=== PATIENT | male | born 1950 | race Caucasian/White ===

== ENCOUNTER 2017-04-06 10:25 | Inpatient (IN) | payer MEDICARE ==
[2017-04-06] VITALS (9 sets, daily range): BP systolic 120–162; BP diastolic 74–87
[~2017-04-06] VITALS: Ht 195.6 cm; Wt 144.2 kg
[~2017-04-06 10:25] MED LIST: ACET325T14 PO; ACET325T14 PR; CHOL4PAC2 PO; DEXT50DI3 IV; DIPH1TAB PO; DIPH1TAB6 PO; Enoxaparin Sodium SQ; FENT1PAT75 TD; FURO80TA3 PO; GABA-827 PO; GLIP10TA13 PO; GLUC1VIA IM; HYDR20VI3 IVPush; INSU100C5 SQ-INSULIN; INSU100I18 SQ-INSULIN; INSU100V4 SQ; INSU100V5 SQ-INSULIN; IPRA3AMP NEB; LABE5VIA13 IV; LISI-170 PO; LOVA40TA2 PO; MERO1VIA15 IV; METF500T4 PO; ONDA2VIA3 IVPush; OXYC5TAB3 PO; PANT40VI IV; POTA20LI NG; QUET25TA PO; WARF5TAB7 PO; [UNRECOGNIZED DRUG - CODE] IV; [UNRECOGNIZED DRUG - CODE] IVPB
[2017-04-06] MEDS ORDERED: SODIUM CHLORIDE 0.9% 1,000 ML IV ONE (10:51)
[2017-04-06] MEDS ORDERED: ONDANSETRON 2MG/ML, 2ML IVPush ONE (11:00)
[2017-04-06] MEDS ORDERED: SODIUM CHLORIDE 0.9% 1,000ML IVBOLUS ONE (11:00)
[2017-04-06] MEDS ORDERED: SODIUM CHLORIDE FLUSH 10ML SYR IVF ONE (11:00)
[2017-04-06] MEDS ORDERED: MORPHINE SULFATE 4 MG/ML, 1ML IVPush PRN (11:00)
[2017-04-06] MEDS ORDERED: MORPHINE SULFATE 4 MG/ML, 1ML ONE (11:27)
[2017-04-06] MEDS ORDERED: ONDANSETRON 2MG/ML, 2ML ONE (11:27)
[2017-04-06 11:36] LABS: MEAN CORPUSCULAR HEMOGLOBIN 28.6 pg (27.5-34.5); MEAN CORPUSCULAR HGB CONC 32.8 g/dL (33.2-36.2); MEAN CORPUSCULAR VOLUME 87.2 fL (81-97); MEAN PLATELET VOLUME 8.9 fL (7.4-10.4); PLATELET COUNT 375 x10^3/uL (130-400); RED BLOOD COUNT 4.77 x10^6/uL (4.38-5.82); RED CELL DISTRIBUTION WIDTH 14.8 % (9.4-14.8)
[2017-04-06 11:43] LABS: ANION GAP 10 mmol/L (5-15); CALCIUM 8.3 mg/dL (8.5-10.1); CHLORIDE 100 mmol/L (98-107)
[2017-04-06 11:45] LABS: ALANINE AMINOTRANSFERASE 32 U/L (12-78); CREATININE 1.18 mg/dL (0.7-1.3)
[2017-04-06 11:47] LABS: ALKALINE PHOSPHATASE 107 U/L (45-117); BILIRUBIN,TOTAL 0.9 mg/dL (0.2-1.0); TOTAL PROTEIN 7.5 g/dL (6.4-8.2)
[2017-04-06] MEDS ORDERED: GABA-827 PO (11:49)
[2017-04-06] MEDS ORDERED: OMEG-157 PO (11:49)
[2017-04-06] MEDS ORDERED: POTA99TA8 PO (11:49)
[2017-04-06] MEDS ORDERED: CARV-39 PO (11:49)
[2017-04-06] MEDS ORDERED: AMLO10TA2 PO (11:49)
[2017-04-06] MEDS ORDERED: ZINC50TA3 PO (11:49)
[2017-04-06] MEDS ORDERED: ASCO500T8 PO (11:49)
[2017-04-06] MEDS ORDERED: METF500T27 PO (11:49)
[2017-04-06] MEDS ORDERED: LISI40TA PO (11:49)
[2017-04-06] MEDS ORDERED: LOVA40TA2 PO (11:49)
[2017-04-06 12:10] LABS: MD YES
[2017-04-06 12:12] LABS: BAND#(MANUAL) 0.46 x10^3/uL; BANDS%(MANUAL) 2 % (0-7); LYMPH#(MANUAL) 0.92 x10^3/uL (1-3.4); LYMPHS% (MANUAL) 4 % (22-44); MONOS#(MANUAL) 0.92 x10^3/uL (0.3-2.7); MONOS% (MANUAL) 4 % (2-9); SEGS% (MANUAL) 90 % (42-75)
[2017-04-06 12:13] LABS: <PLATELET ESTIMATE> ADEQUATE
[2017-04-06 12:14] LABS: <RBC MORPHOLOGY> NORMAL; LARGE PLATELETS 1+
[2017-04-06] MEDS ORDERED: OMNIPAQUE 350 MG/ML, 100ML BOTTLE ONE (12:31)
[2017-04-06 13:16] LABS: MICROSCOPIC INDICATED
[2017-04-06 13:20] LABS: CULTURE INDICATED? NO
[2017-04-06 13:27] LABS: INTERNATIONAL NORMALIZED RATIO 6.12 (0.93-1.1); PROTHROMBIN TIME 60.8 Seconds (9.6-11.5)
[2017-04-06] MEDS ORDERED: CLINDAMYCIN PMX 600MG/50ML 50 ML IV ONE (14:00)
[2017-04-06] MEDS ORDERED: CLINDAMYCIN PMX 600MG/50ML 50 ML ONE (14:27)
[2017-04-06] MEDS ORDERED: SODIUM CHLORIDE 0.9% 1,000 ML IV SCH (18:49)
[2017-04-06] MEDS ORDERED: GLUCAGON 1 MG IM PRN (19:00)
[2017-04-06] MEDS ORDERED: DEXTROSE 50%, 50ML SYRINGE IVPush PRN (19:00)
[2017-04-06] MEDS ORDERED: DEXTROSE 4 GM TAB.CHEW PO PRN (19:00)
[2017-04-06] MEDS ORDERED: PHYTONADIONE 5 MG TABLET PO ONE (19:00)
[2017-04-06] MEDS ORDERED: hydrALAzine 20 MG/ML, 1ML IVPush PRN (19:00)
[2017-04-06] MEDS: AMPICILLIN/SULBACTAM 1,500 MG in SODIUM CHLORIDE 0.9% 50 ML IV SCH (19:53)
[2017-04-06] MEDS: AMLODIPINE 5 MG TABLET PO SCH (19:54)
[2017-04-06] MEDS: metFORMIN XR 500 MG TAB.ER.24H PO SCH (19:55)
[2017-04-06] MEDS: GABAPENTIN 400 MG CAPSULE PO SCH (19:55)
[2017-04-06] MEDS: LOVASTATIN 40 MG TABLET PO SCH (19:55)
[2017-04-06] MEDS: CARVEDILOL 25 MG TABLET PO SCH (19:55)
[2017-04-06] MEDS: SODIUM CHLORIDE FLUSH 10ML SYR IVF SCH (19:56)
[2017-04-06] MEDS: ONDANSETRON 2MG/ML, 2ML IVPush PRN (20:30)
[2017-04-06] MEDS: INSULIN LISPRO 100 UNITS/ML, PEN SQ-INSULIN SCH (21:14)
[2017-04-07 00:11] VITALS: BP 131/79
[2017-04-07] MEDS: AMPICILLIN/SULBACTAM 1,500 MG in SODIUM CHLORIDE 0.9% 50 ML IV SCH ×4 (00:14→19:33)
[2017-04-07 01:40] VITALS: BP 115/73
[2017-04-07 04:53] LABS: MEAN CORPUSCULAR HEMOGLOBIN 28.9 pg (27.5-34.5); MEAN CORPUSCULAR HGB CONC 32.8 g/dL (33.2-36.2); PLATELET COUNT 341 x10^3/uL (130-400); RED BLOOD COUNT 3.72 x10^6/uL (4.38-5.82); RED CELL DISTRIBUTION WIDTH 14.9 % (9.4-14.8)
[2017-04-07 04:58] LABS: INTERNATIONAL NORMALIZED RATIO 2.99 (0.93-1.1); PROTHROMBIN TIME 30.1 Seconds (9.6-11.5)
[2017-04-07 05:01] LABS: CALCIUM 7.7 mg/dL (8.5-10.1); CHLORIDE 105 mmol/L (98-107)
[2017-04-07 05:07] LABS: ALANINE AMINOTRANSFERASE 29 U/L (12-78); ALBUMIN 1.7 g/dL (3.4-5.0); ALKALINE PHOSPHATASE 83 U/L (45-117); ANION GAP 8 mmol/L (5-15); BILIRUBIN,TOTAL 0.8 mg/dL (0.2-1.0); CREATININE 1.06 mg/dL (0.7-1.3); TOTAL PROTEIN 6.4 g/dL (6.4-8.2)
[2017-04-07 05:56] LABS: BASOPHILS # (AUTO) 0.13 x10^3/uL (0-0.1); BASOPHILS % (AUTO) 1 % (0-1); EOSINOPHILS % (AUTO) 0 % (1-7); LYMPHOCYTES # (AUTO) 0.78 x10^3/uL (1-3.4); LYMPHOCYTES % (AUTO) 4 % (22-44); MD SCAN; MONOCYTES # (AUTO) 0.88 x10^3/uL (0.2-0.8); MONOCYTES % (AUTO) 5 % (2-9); NEUTROPHILS % (AUTO) 90 % (42-75)
[2017-04-07] MEDS: GABAPENTIN 400 MG CAPSULE PO SCH ×3 (07:51→21:32)
[2017-04-07] MEDS: LISINOPRIL 20 MG TABLET PO SCH (07:51)
[2017-04-07] MEDS: OMEGA-3/FISH OIL CAPSULE PO SCH (07:51)
[2017-04-07] MEDS: CARVEDILOL 25 MG TABLET PO SCH ×2 (07:51→21:31)
[2017-04-07] MEDS: ASCORBIC ACID 500 MG TABLET PO SCH (07:51)
[2017-04-07] MEDS: ONDANSETRON 2MG/ML, 2ML IVPush PRN (07:52)
[2017-04-07] MEDS: INSULIN LISPRO 100 UNITS/ML, PEN SQ-INSULIN SCH ×4 (07:52→21:39)
[2017-04-07 07:53] VITALS: BP 124/75
[2017-04-07] MEDS ORDERED: INSULIN GLARGINE 100 UNITS/ML, PEN SQ-INSULIN SCH (08:00)
[2017-04-07] MEDS: SODIUM CHLORIDE FLUSH 10ML SYR IVF SCH ×2 (08:01→19:33)
[2017-04-07] MEDS ORDERED: ZINC GLUCONATE 50 MG PO SCH (09:00)
[2017-04-07 14:00] VITALS: BP 100/63
[2017-04-07 20:26] VITALS: BP 119/66
[2017-04-07] MEDS: metFORMIN XR 500 MG TAB.ER.24H PO SCH (21:32)
[2017-04-07] MEDS: AMLODIPINE 5 MG TABLET PO SCH (21:32)
[2017-04-07] MEDS: LOVASTATIN 40 MG TABLET PO SCH (21:32)
[2017-04-08] MEDS: AMPICILLIN/SULBACTAM 1,500 MG in SODIUM CHLORIDE 0.9% 50 ML IV SCH ×4 (01:04→18:36)
[2017-04-08 03:05] VITALS: BP 94/59
[2017-04-08 03:21] LABS: BASOPHILS # (AUTO) 0.02 x10^3/uL (0-0.1); BASOPHILS % (AUTO) 0 % (0-1); EOSINOPHILS % (AUTO) 0 % (1-7); LYMPHOCYTES # (AUTO) 0.89 x10^3/uL (1-3.4); LYMPHOCYTES % (AUTO) 5 % (22-44); MD NO; MEAN CORPUSCULAR HEMOGLOBIN 29.2 pg (27.5-34.5); MEAN CORPUSCULAR HGB CONC 33.3 g/dL (33.2-36.2); MEAN CORPUSCULAR VOLUME 87.6 fL (81-97); MEAN PLATELET VOLUME 8.9 fL (7.4-10.4); MONOCYTES # (AUTO) 0.96 x10^3/uL (0.2-0.8); MONOCYTES % (AUTO) 6 % (2-9); NEUTROPHILS # (AUTO) 15.19 x10^3/uL (1.8-6.8); NEUTROPHILS % (AUTO) 89 % (42-75); PLATELET COUNT 371 x10^3/uL (130-400); RED CELL DISTRIBUTION WIDTH 15.6 % (9.4-14.8)
[2017-04-08 03:25] LABS: INTERNATIONAL NORMALIZED RATIO 1.52 (0.93-1.1); PROTHROMBIN TIME 15.5 Seconds (9.6-11.5)
[2017-04-08 03:33] LABS: ANION GAP 8 mmol/L (5-15); CALCIUM 7.8 mg/dL (8.5-10.1); CHLORIDE 105 mmol/L (98-107)
[2017-04-08 03:37] LABS: CREATININE 1.51 mg/dL (0.7-1.3)
[2017-04-08 07:01] VITALS: BP 104/68
[2017-04-08] MEDS: CARVEDILOL 25 MG TABLET PO SCH ×2 (07:35→21:49)
[2017-04-08] MEDS: ASCORBIC ACID 500 MG TABLET PO SCH (07:35)
[2017-04-08] MEDS: SODIUM CHLORIDE FLUSH 10ML SYR IVF SCH ×2 (07:36→21:49)
[2017-04-08] MEDS: GABAPENTIN 400 MG CAPSULE PO SCH ×3 (07:36→21:51)
[2017-04-08] MEDS: LISINOPRIL 20 MG TABLET PO SCH (07:36)
[2017-04-08] MEDS: OMEGA-3/FISH OIL CAPSULE PO SCH (07:36)
[2017-04-08] MEDS: INSULIN LISPRO 100 UNITS/ML, PEN SQ-INSULIN SCH ×4 (07:38→21:58)
[2017-04-08] MEDS: ACETAMINOPHEN 325 MG TABLET PO PRN (07:51)
[2017-04-08 13:27] VITALS: BP 113/66
[2017-04-08 19:15] VITALS: BP 123/70
[2017-04-08] MEDS: AMLODIPINE 5 MG TABLET PO SCH (21:49)
[2017-04-08] MEDS: metFORMIN XR 500 MG TAB.ER.24H PO SCH (21:49)
[2017-04-08] MEDS: LOVASTATIN 40 MG TABLET PO SCH (21:49)
[2017-04-09] MEDS: AMPICILLIN/SULBACTAM 1,500 MG in SODIUM CHLORIDE 0.9% 50 ML IV SCH ×4 (01:08→18:14)
[2017-04-09 01:11] VITALS: BP 118/73
[2017-04-09 03:12] LABS: MEAN CORPUSCULAR HEMOGLOBIN 28.8 pg (27.5-34.5); MEAN CORPUSCULAR HGB CONC 32.9 g/dL (33.2-36.2); MEAN CORPUSCULAR VOLUME 87.5 fL (81-97); MEAN PLATELET VOLUME 8.9 fL (7.4-10.4); PLATELET COUNT 403 x10^3/uL (130-400); RED CELL DISTRIBUTION WIDTH 15.3 % (9.4-14.8)
[2017-04-09 03:24] LABS: ANION GAP 8 mmol/L (5-15); CALCIUM 7.7 mg/dL (8.5-10.1); CHLORIDE 106 mmol/L (98-107)
[2017-04-09 03:45] LABS: BASOPHILS # (AUTO) 0.05 x10^3/uL (0-0.1); BASOPHILS % (AUTO) 0 % (0-1); EOSINOPHILS % (AUTO) 0 % (1-7); LYMPHOCYTES # (AUTO) 0.96 x10^3/uL (1-3.4); LYMPHOCYTES % (AUTO) 6 % (22-44); MD SCAN; MONOCYTES # (AUTO) 0.97 x10^3/uL (0.2-0.8); MONOCYTES % (AUTO) 6 % (2-9); NEUTROPHILS # (AUTO) 13.58 x10^3/uL (1.8-6.8); NEUTROPHILS % (AUTO) 87 % (42-75)
[2017-04-09 06:47] VITALS: BP 111/68
[2017-04-09] MEDS: LISINOPRIL 20 MG TABLET PO SCH (07:33)
[2017-04-09] MEDS: ASCORBIC ACID 500 MG TABLET PO SCH (07:33)
[2017-04-09] MEDS: GABAPENTIN 400 MG CAPSULE PO SCH ×3 (07:33→19:57)
[2017-04-09] MEDS: OMEGA-3/FISH OIL CAPSULE PO SCH (07:33)
[2017-04-09] MEDS: CARVEDILOL 25 MG TABLET PO SCH ×2 (07:33→19:56)
[2017-04-09] MEDS: SODIUM CHLORIDE FLUSH 10ML SYR IVF SCH ×2 (07:35→19:56)
[2017-04-09] MEDS: INSULIN LISPRO 100 UNITS/ML, PEN SQ-INSULIN SCH ×4 (07:35→20:10)
[2017-04-09 11:09] LABS: CLOSTRIDIUM DIFFICILE ANTIGEN NEGATIVE; CLOSTRIDIUM DIFFICILE TOXIN NEGATIVE (Negative)
[2017-04-09] MEDS: ACETAMINOPHEN 325 MG TABLET PO PRN ×2 (11:19→19:57)
[2017-04-09 12:35] VITALS: BP 145/83
[2017-04-09] MEDS ORDERED: GADOBUTROL 10 MMOL/10 ML PFS ONE (19:08)
[2017-04-09 19:42] VITALS: BP 144/72
[2017-04-09] MEDS: metFORMIN XR 500 MG TAB.ER.24H PO SCH (19:56)
[2017-04-09] MEDS: LOVASTATIN 40 MG TABLET PO SCH (19:56)
[2017-04-09] MEDS: AMLODIPINE 5 MG TABLET PO SCH (19:57)
[2017-04-10] MEDS: AMPICILLIN/SULBACTAM 1,500 MG in SODIUM CHLORIDE 0.9% 50 ML IV SCH (01:58)
[2017-04-10 04:36] VITALS: BP 126/73
[2017-04-10 04:56] LABS: MEAN CORPUSCULAR HGB CONC 33.3 g/dL (33.2-36.2); MEAN CORPUSCULAR VOLUME 87.2 fL (81-97); MEAN PLATELET VOLUME 8.9 fL (7.4-10.4); PLATELET COUNT 401 x10^3/uL (130-400); RED BLOOD COUNT 3.87 x10^6/uL (4.38-5.82); RED CELL DISTRIBUTION WIDTH 15.2 % (9.4-14.8)
[2017-04-10 05:02] LABS: ANION GAP 4 mmol/L (5-15); CHLORIDE 106 mmol/L (98-107); CREATININE 1.01 mg/dL (0.7-1.3)
[2017-04-10 06:01] LABS: BASOPHILS # (AUTO) 0.11 x10^3/uL (0-0.1); BASOPHILS % (AUTO) 1 % (0-1); EOSINOPHILS % (AUTO) 0 % (1-7); LYMPHOCYTES # (AUTO) 1.12 x10^3/uL (1-3.4); LYMPHOCYTES % (AUTO) 7 % (22-44); MD SCAN; MONOCYTES # (AUTO) 0.85 x10^3/uL (0.2-0.8); MONOCYTES % (AUTO) 6 % (2-9); NEUTROPHILS # (AUTO) 13.37 x10^3/uL (1.8-6.8); NEUTROPHILS % (AUTO) 87 % (42-75)
[2017-04-10 06:54] VITALS: BP 143/75
[2017-04-10] MEDS: INSULIN LISPRO 100 UNITS/ML, PEN SQ-INSULIN SCH ×4 (07:00→21:34)
[2017-04-10] MEDS ORDERED: VANCOMYCIN PER PHARMACY MC PRN (07:30)
[2017-04-10] MEDS ORDERED: PIPERACILLIN/TAZO/PMX 3.375GM 50 ML IV SCH (07:30)
[2017-04-10] MEDS: CARVEDILOL 25 MG TABLET PO SCH ×2 (08:49→21:24)
[2017-04-10] MEDS: SODIUM CHLORIDE FLUSH 10ML SYR IVF SCH ×2 (08:49→21:23)
[2017-04-10] MEDS: OMEGA-3/FISH OIL CAPSULE PO SCH (08:51)
[2017-04-10] MEDS: LISINOPRIL 20 MG TABLET PO SCH (08:52)
[2017-04-10] MEDS: ASCORBIC ACID 500 MG TABLET PO SCH (08:52)
[2017-04-10] MEDS: GABAPENTIN 400 MG CAPSULE PO SCH ×3 (08:52→21:24)
[2017-04-10] MEDS ORDERED: PHARMACOKINETIC CONSULTATION MC ONE (09:00)
[2017-04-10] MEDS ORDERED: PHARMACOKINETIC MONITORING MC PRN (09:00)
[2017-04-10] MEDS ORDERED: VANCOMYCIN 2,200 MG in SODIUM CHLORIDE 0.9% 500 ML IV SCH (09:30)
[2017-04-10] MEDS: LACTATED RINGERS 1,000 ML IV SCH ×2 (09:43→23:53)
[2017-04-10] MEDS ORDERED: SUGAMMADEX 200 MG/2 ML IVPush ONE ×2 (10:00)
[2017-04-10] MEDS ORDERED: ONDANSETRON 2MG/ML, 2ML ONE (10:09)
[2017-04-10] MEDS ORDERED: DEXAMETHASONE 4 MG/ML, 1ML ONE (10:09)
[2017-04-10] MEDS ORDERED: ROCURONIUM 10 MG/ML,10ML ONE (10:09)
[2017-04-10] MEDS ORDERED: CEFAZOLIN 1,000 MG ONE (10:09)
[2017-04-10] MEDS ORDERED: PROPOFOL 10 MG/ML, 20ML ONE (10:09)
[2017-04-10] MEDS ORDERED: FENTANYL PF 100 MCG/2ML IV PRN (11:00)
[2017-04-10] MEDS ORDERED: morphine SULFATE 10 MG/ML, 1ML IV PRN (11:00)
[2017-04-10] MEDS ORDERED: HYDROcodone/APAP 7.5-325MG/15ML UDC PO PRN (11:00)
[2017-04-10] MEDS ORDERED: OXYcodone 5 MG/5 ML ORAL.SOL UDC PO PRN (11:00)
[2017-04-10] MEDS ORDERED: HYDROmorphone 2 MG/ML, 1ML ONE (11:30)
[2017-04-10] MEDS ORDERED: OXYcodone 5 MG/5 ML ORAL.SOL UDC ONE (11:30)
[2017-04-10] MEDS: HYDROmorphone 1 MG/ML, 1ML IV PRN ×4 (11:35→12:00)
[2017-04-10] MEDS: OXYcodone/APAP 5/325MG TABLET PO PRN (12:37)
[2017-04-10 13:10] VITALS: BP 135/73
[2017-04-10] MEDS: MORPHINE SULFATE 4 MG/ML, 1ML IVPush PRN (15:02)
[2017-04-10] MEDS: MEROPENEM 1 GM in SODIUM CHLORIDE 0.9% 100 ML IV SCH ×2 (15:02→23:53)
[2017-04-10 18:39] VITALS: BP 119/69
[2017-04-10] MEDS: metFORMIN XR 500 MG TAB.ER.24H PO SCH (21:24)
[2017-04-10] MEDS: LOVASTATIN 40 MG TABLET PO SCH (21:24)
[2017-04-10] MEDS: AMLODIPINE 5 MG TABLET PO SCH (21:25)
[2017-04-10] MEDS: HEPARIN 5,000 UNITS/ML, 1ML SQ SCH (21:25)
[2017-04-11] MEDS: MORPHINE SULFATE 4 MG/ML, 1ML IVPush PRN (00:21)
[2017-04-11 00:55] VITALS: BP 110/65
[2017-04-11 03:12] LABS: MEAN CORPUSCULAR HEMOGLOBIN 28.8 pg (27.5-34.5); MEAN CORPUSCULAR HGB CONC 32.8 g/dL (33.2-36.2); MEAN CORPUSCULAR VOLUME 87.8 fL (81-97); MEAN PLATELET VOLUME 8.5 fL (7.4-10.4); PLATELET COUNT 432 x10^3/uL (130-400); RED BLOOD COUNT 3.65 x10^6/uL (4.38-5.82); RED CELL DISTRIBUTION WIDTH 15.3 % (9.4-14.8)
[2017-04-11 03:17] LABS: ALBUMIN 1.4 g/dL (3.4-5.0); ANION GAP 7 mmol/L (5-15); CALCIUM 7.7 mg/dL (8.5-10.1); CHLORIDE 105 mmol/L (98-107)
[2017-04-11 03:25] LABS: ALANINE AMINOTRANSFERASE 47 U/L (12-78); ALKALINE PHOSPHATASE 83 U/L (45-117); BILIRUBIN,TOTAL 0.6 mg/dL (0.2-1.0); CREATININE 0.99 mg/dL (0.7-1.3)
[2017-04-11 03:38] LABS: BASOPHILS # (AUTO) 0.04 x10^3/uL (0-0.1); BASOPHILS % (AUTO) 0 % (0-1); EOSINOPHILS # (AUTO) 0.01 x10^3/uL (0-0.4); EOSINOPHILS % (AUTO) 0 % (1-7); LYMPHOCYTES # (AUTO) 0.87 x10^3/uL (1-3.4); LYMPHOCYTES % (AUTO) 5 % (22-44); MD SCAN; MONOCYTES # (AUTO) 0.89 x10^3/uL (0.2-0.8); MONOCYTES % (AUTO) 5 % (2-9); NEUTROPHILS # (AUTO) 16.64 x10^3/uL (1.8-6.8); NEUTROPHILS % (AUTO) 90 % (42-75)
[2017-04-11 03:50] LABS: HEMOGLOBIN A1C 10.4 % (4.2-6.3)
[2017-04-11 04:07] LABS: SEDIMENTATION RATE 107 mm/hr (0-10)
[2017-04-11] MEDS: HEPARIN 5,000 UNITS/ML, 1ML SQ SCH ×2 (05:38→13:00)
[2017-04-11] MEDS: MEROPENEM 1 GM in SODIUM CHLORIDE 0.9% 100 ML IV SCH ×3 (05:39→22:34)
[2017-04-11 07:41] VITALS: BP 130/73
[2017-04-11] MEDS: INSULIN LISPRO 100 UNITS/ML, PEN SQ-INSULIN SCH ×4 (07:51→21:27)
[2017-04-11] MEDS: CARVEDILOL 25 MG TABLET PO SCH ×2 (09:00→21:19)
[2017-04-11] MEDS: SODIUM CHLORIDE FLUSH 10ML SYR IVF SCH ×2 (09:00→21:19)
[2017-04-11] MEDS: ASCORBIC ACID 500 MG TABLET PO SCH (09:47)
[2017-04-11] MEDS: GABAPENTIN 400 MG CAPSULE PO SCH ×3 (09:47→21:18)
[2017-04-11] MEDS: OMEGA-3/FISH OIL CAPSULE PO SCH (09:47)
[2017-04-11] MEDS: LISINOPRIL 20 MG TABLET PO SCH (09:47)
[2017-04-11] MEDS: OXYcodone/APAP 5/325MG TABLET PO PRN ×2 (11:23→21:27)
[2017-04-11 13:28] VITALS: BP 112/67
[2017-04-11] MEDS ORDERED: HYDROmorphone 1 MG/ML, 1ML IV PRN (15:30)
[2017-04-11] MEDS ORDERED: OXYcodone 5 MG/5 ML ORAL.SOL UDC PO PRN (15:30)
[2017-04-11] MEDS ORDERED: MIDAZOLAM 1 MG/ML, 2ML IV PRN (15:30)
[2017-04-11] MEDS ORDERED: ACETAMINOPHEN 325 MG TABLET PO PRN (15:30)
[2017-04-11] MEDS ORDERED: MEPERIDINE/PF 25MG/0.5ML IVPush PRN (15:30)
[2017-04-11] MEDS ORDERED: LABETALOL 5MG/ML, 20ML IV PRN (15:30)
[2017-04-11] MEDS ORDERED: hydrALAzine 20 MG/ML, 1ML IV PRN (15:30)
[2017-04-11] MEDS ORDERED: ALBUTEROL/IPRATROPIUM 2.5MG/0.5MG, 3 ML NPPB PRN (15:30)
[2017-04-11] MEDS ORDERED: ONDANSETRON 2MG/ML, 2ML IVPush PRN (15:30)
[2017-04-11] MEDS ORDERED: LIDOCAINE GEL 2%, 5ML ONE (15:32)
[2017-04-11] MEDS ORDERED: FENTANYL PF 250 MCG/5ML ONE (15:33)
[2017-04-11] MEDS ORDERED: PHENYLEPHRINE 10 MG/ML ONE (15:41)
[2017-04-11] MEDS ORDERED: EPHEDRINE 50 MG/ML, 1ML ONE (16:09)
[2017-04-11] MEDS ORDERED: ONDANSETRON 2MG/ML, 2ML ONE (16:10)
[2017-04-11] MEDS ORDERED: PROPOFOL 10 MG/ML, 20ML ONE (16:10)
[2017-04-11] MEDS ORDERED: DEXAMETHASONE 4 MG/ML, 1ML ONE (16:10)
[2017-04-11] MEDS ORDERED: CEFAZOLIN 1,000 MG ONE (16:10)
[2017-04-11] MEDS ORDERED: OXYcodone 5 MG/5 ML ORAL.SOL UDC ONE (17:17)
[2017-04-11] MEDS ORDERED: FENTANYL PF 100 MCG/2ML ONE (17:29)
[2017-04-11] MEDS: FENTANYL PF 100 MCG/2ML IV PRN ×2 (17:30→17:45)
[2017-04-11] MEDS: LOVASTATIN 40 MG TABLET PO SCH (21:19)
[2017-04-11] MEDS: AMLODIPINE 5 MG TABLET PO SCH (22:31)
[2017-04-11] MEDS: LACTATED RINGERS 1,000 ML IV SCH (22:35)
[2017-04-12 00:09] VITALS: BP 107/59
[2017-04-12] MEDS: MORPHINE SULFATE 4 MG/ML, 1ML IVPush PRN ×4 (00:19→20:46)
[2017-04-12] MEDS: OXYcodone/APAP 5/325MG TABLET PO PRN ×3 (04:50→17:38)
[2017-04-12 06:35] VITALS: BP 124/72
[2017-04-12] MEDS: MEROPENEM 1 GM in SODIUM CHLORIDE 0.9% 100 ML IV SCH ×3 (06:39→22:57)
[2017-04-12] MEDS: INSULIN LISPRO 100 UNITS/ML, PEN SQ-INSULIN SCH ×4 (07:51→20:40)
[2017-04-12] MEDS: SODIUM CHLORIDE FLUSH 10ML SYR IVF SCH ×2 (09:00→20:33)
[2017-04-12] MEDS: CARVEDILOL 25 MG TABLET PO SCH ×2 (09:11→20:36)
[2017-04-12] MEDS: OMEGA-3/FISH OIL CAPSULE PO SCH (09:12)
[2017-04-12] MEDS: ASCORBIC ACID 500 MG TABLET PO SCH (09:12)
[2017-04-12] MEDS: GABAPENTIN 400 MG CAPSULE PO SCH ×3 (09:13→20:36)
[2017-04-12] MEDS: LISINOPRIL 20 MG TABLET PO SCH (09:13)
[2017-04-12] MEDS: HEPARIN 5,000 UNITS/ML, 1ML SQ SCH ×2 (09:14→17:39)
[2017-04-12 11:19] LABS: MEAN CORPUSCULAR HEMOGLOBIN 28.4 pg (27.5-34.5); MEAN CORPUSCULAR HGB CONC 32.6 g/dL (33.2-36.2); MEAN PLATELET VOLUME 8.6 fL (7.4-10.4); PLATELET COUNT 475 x10^3/uL (130-400); RED BLOOD COUNT 3.28 x10^6/uL (4.38-5.82); RED CELL DISTRIBUTION WIDTH 15.7 % (9.4-14.8)
[2017-04-12 11:31] LABS: ANION GAP 5 mmol/L (5-15); CALCIUM 7.9 mg/dL (8.5-10.1); CHLORIDE 104 mmol/L (98-107)
[2017-04-12 12:01] LABS: BASOPHILS # (AUTO) 0.09 x10^3/uL (0-0.1); BASOPHILS % (AUTO) 1 % (0-1); EOSINOPHILS # (AUTO) 0.01 x10^3/uL (0-0.4); EOSINOPHILS % (AUTO) 0 % (1-7); LYMPHOCYTES # (AUTO) 0.81 x10^3/uL (1-3.4); LYMPHOCYTES % (AUTO) 5 % (22-44); MD SCAN; MONOCYTES # (AUTO) 0.76 x10^3/uL (0.2-0.8); MONOCYTES % (AUTO) 5 % (2-9); NEUTROPHILS # (AUTO) 14.29 x10^3/uL (1.8-6.8); NEUTROPHILS % (AUTO) 90 % (42-75)
[2017-04-12] MEDS: LACTATED RINGERS 1,000 ML IV SCH (12:47)
[2017-04-12 13:14] VITALS: BP 97/66
[2017-04-12 19:52] VITALS: BP 132/60
[2017-04-12] MEDS: AMLODIPINE 5 MG TABLET PO SCH (20:36)
[2017-04-12] MEDS: LOVASTATIN 40 MG TABLET PO SCH (20:40)
[2017-04-13] MEDS: HEPARIN 5,000 UNITS/ML, 1ML SQ SCH ×3 (01:17→16:28)
[2017-04-13 01:55] VITALS: BP 127/74
[2017-04-13] MEDS: LACTATED RINGERS 1,000 ML IV SCH ×2 (03:06→16:29)
[2017-04-13 04:22] LABS: MEAN CORPUSCULAR HGB CONC 33.2 g/dL (33.2-36.2); MEAN CORPUSCULAR VOLUME 87.4 fL (81-97); MEAN PLATELET VOLUME 8.3 fL (7.4-10.4); PLATELET COUNT 477 x10^3/uL (130-400); RED BLOOD COUNT 3.15 x10^6/uL (4.38-5.82); RED CELL DISTRIBUTION WIDTH 15.8 % (9.4-14.8)
[2017-04-13 04:35] LABS: ALBUMIN 1.3 g/dL (3.4-5.0); ANION GAP 6 mmol/L (5-15); CALCIUM 7.6 mg/dL (8.5-10.1); CHLORIDE 104 mmol/L (98-107)
[2017-04-13 04:42] LABS: ALANINE AMINOTRANSFERASE 38 U/L (12-78); ALKALINE PHOSPHATASE 70 U/L (45-117); BILIRUBIN,TOTAL 0.4 mg/dL (0.2-1.0); CREATININE 0.71 mg/dL (0.7-1.3); TOTAL PROTEIN 5.8 g/dL (6.4-8.2)
[2017-04-13 04:58] LABS: HCT (SEDRATE) 27.5 % (39.2-51.8)
[2017-04-13 05:52] LABS: MD YES
[2017-04-13 05:53] LABS: BAND#(MANUAL) 0.31 x10^3/uL; BANDS%(MANUAL) 2 % (0-7); EOS#(MANUAL) 0.15 x10^3/uL (0.0-0.4); EOS% (MANUAL) 1 % (1-7); LYMPH#(MANUAL) 1.23 x10^3/uL (1-3.4); LYMPHS% (MANUAL) 8 % (22-44); METAMYELOCYTES# (MANUAL) 0.15 x10^3/uL (0-0); METAMYELOCYTES% (MANUAL) 1 % (0-1); MONOS#(MANUAL) 1.08 x10^3/uL (0.3-2.7); MONOS% (MANUAL) 7 % (2-9); MYELOCYTES# (MANUAL) 0.15 x10^3/uL (0-0); MYELOCYTES% (MANUAL) 1 % (0-0); SEG#(MANUAL) 12.32 x10^3/uL (1.8-6.8); SEGS% (MANUAL) 80 % (42-75)
[2017-04-13 05:54] LABS: <PLATELET ESTIMATE> INCREASED; <PLT MORPHOLOGY> NORMAL PLT MORPH; ANISOCYTOSIS 1+; POLYCHROMASIA 1+
[2017-04-13] MEDS: MEROPENEM 1 GM in SODIUM CHLORIDE 0.9% 100 ML IV SCH ×3 (06:03→22:50)
[2017-04-13] MEDS: MORPHINE SULFATE 4 MG/ML, 1ML IVPush PRN ×4 (06:03→21:37)
[2017-04-13 07:14] VITALS: BP 146/75
[2017-04-13] MEDS: LISINOPRIL 20 MG TABLET PO SCH (07:45)
[2017-04-13] MEDS: OMEGA-3/FISH OIL CAPSULE PO SCH (07:45)
[2017-04-13] MEDS: ASCORBIC ACID 500 MG TABLET PO SCH (07:45)
[2017-04-13] MEDS: GABAPENTIN 400 MG CAPSULE PO SCH ×3 (07:45→20:44)
[2017-04-13] MEDS: SODIUM CHLORIDE FLUSH 10ML SYR IVF SCH ×2 (07:46→21:00)
[2017-04-13] MEDS: CARVEDILOL 25 MG TABLET PO SCH ×2 (07:46→20:44)
[2017-04-13] MEDS: INSULIN LISPRO 100 UNITS/ML, PEN SQ-INSULIN SCH ×4 (07:48→20:55)
[2017-04-13] MEDS: OXYcodone/APAP 5/325MG TABLET PO PRN (12:33)
[2017-04-13 13:32] VITALS: BP 112/64
[2017-04-13] MEDS ORDERED: morphine SULFATE 10 MG/ML, 1ML ONE (13:56)
[2017-04-13 19:31] VITALS: BP 138/72
[2017-04-13] MEDS: LOVASTATIN 40 MG TABLET PO SCH (20:44)
[2017-04-13] MEDS: AMLODIPINE 5 MG TABLET PO SCH (20:44)
[2017-04-13] MEDS: INSULIN GLARGINE 100 UNITS/ML, PEN SQ-INSULIN SCH (21:42)
[2017-04-14] MEDS: HEPARIN 5,000 UNITS/ML, 1ML SQ SCH ×3 (01:34→17:29)
[2017-04-14 01:48] VITALS: BP 145/78
[2017-04-14 04:43] LABS: MEAN CORPUSCULAR HGB CONC 33.4 g/dL (33.2-36.2); MEAN PLATELET VOLUME 8.2 fL (7.4-10.4); PLATELET COUNT 492 x10^3/uL (130-400); RED BLOOD COUNT 3.04 x10^6/uL (4.38-5.82); RED CELL DISTRIBUTION WIDTH 15.4 % (9.4-14.8)
[2017-04-14 05:40] LABS: MD YES
[2017-04-14 05:42] LABS: <PLATELET ESTIMATE> INCREASED; <PLT MORPHOLOGY> NORMAL PLT MORPH; ANISOCYTOSIS 1+; BAND#(MANUAL) 0.45 x10^3/uL; BANDS%(MANUAL) 3 % (0-7); LYMPHS% (MANUAL) 10 % (22-44); METAMYELOCYTES% (MANUAL) 4 % (0-1); MONOS#(MANUAL) 0.45 x10^3/uL (0.3-2.7); MONOS% (MANUAL) 3 % (2-9); MYELOCYTES% (MANUAL) 2 % (0-0); POLYCHROMASIA 1+; SEGS% (MANUAL) 78 % (42-75)
[2017-04-14] MEDS: LACTATED RINGERS 1,000 ML IV SCH ×2 (06:04→20:34)
[2017-04-14] MEDS: MEROPENEM 1 GM in SODIUM CHLORIDE 0.9% 100 ML IV SCH ×3 (06:07→22:09)
[2017-04-14] MEDS: OXYcodone/APAP 5/325MG TABLET PO PRN ×2 (06:39→17:28)
[2017-04-14 07:29] VITALS: BP 142/66
[2017-04-14] MEDS: CARVEDILOL 25 MG TABLET PO SCH ×2 (07:40→20:34)
[2017-04-14] MEDS: INSULIN LISPRO 100 UNITS/ML, PEN SQ-INSULIN SCH ×4 (07:40→20:36)
[2017-04-14] MEDS: LISINOPRIL 20 MG TABLET PO SCH (07:41)
[2017-04-14] MEDS: OMEGA-3/FISH OIL CAPSULE PO SCH (07:41)
[2017-04-14] MEDS: ASCORBIC ACID 500 MG TABLET PO SCH (07:41)
[2017-04-14] MEDS: GABAPENTIN 400 MG CAPSULE PO SCH ×3 (07:41→20:34)
[2017-04-14] MEDS: SODIUM CHLORIDE FLUSH 10ML SYR IVF SCH ×2 (07:42→20:34)
[2017-04-14] MEDS: MORPHINE SULFATE 4 MG/ML, 1ML IVPush PRN ×2 (08:03→14:28)
[2017-04-14 13:59] VITALS: BP 125/56
[2017-04-14] MEDS ORDERED: POLYETHYLENE GLYCOL 17 GM PACKET PO PRN (14:00)
[2017-04-14 15:26] LABS: INTERNATIONAL NORMALIZED RATIO 1.1 (0.93-1.1); PROTHROMBIN TIME 11.3 Seconds (9.6-11.5)
[2017-04-14] MEDS ORDERED: WARFARIN 5 MG TABLET PO-COUM ONE (18:00)
[2017-04-14 20:00] VITALS: BP 131/71
[2017-04-14] MEDS: LOVASTATIN 40 MG TABLET PO SCH (20:34)
[2017-04-14] MEDS: DOCUSATE 100 MG CAPSULE PO SCH (20:34)
[2017-04-14] MEDS: INSULIN GLARGINE 100 UNITS/ML, PEN SQ-INSULIN SCH (20:35)
[2017-04-14] MEDS: AMLODIPINE 5 MG TABLET PO SCH (20:35)
[2017-04-15] MEDS: HEPARIN 5,000 UNITS/ML, 1ML SQ SCH ×3 (01:45→17:09)
[2017-04-15] MEDS: OXYcodone/APAP 5/325MG TABLET PO PRN ×3 (01:45→17:08)
[2017-04-15 02:00] VITALS: BP 128/71
[2017-04-15 05:15] LABS: INTERNATIONAL NORMALIZED RATIO 1.07 (0.93-1.1)
[2017-04-15 05:17] LABS: MEAN CORPUSCULAR HEMOGLOBIN 29.2 pg (27.5-34.5); MEAN CORPUSCULAR HGB CONC 33.6 g/dL (33.2-36.2); MEAN CORPUSCULAR VOLUME 86.9 fL (81-97); MEAN PLATELET VOLUME 8.1 fL (7.4-10.4); PLATELET COUNT 432 x10^3/uL (130-400); RED BLOOD COUNT 2.91 x10^6/uL (4.38-5.82); RED CELL DISTRIBUTION WIDTH 15.7 % (9.4-14.8)
[2017-04-15] MEDS: MEROPENEM 1 GM in SODIUM CHLORIDE 0.9% 100 ML IV SCH ×2 (05:38→14:26)
[2017-04-15 05:59] LABS: MD YES
[2017-04-15 06:01] LABS: BAND#(MANUAL) 0.79 x10^3/uL; BANDS%(MANUAL) 6 % (0-7); EOS#(MANUAL) 0.13 x10^3/uL (0.0-0.4); EOS% (MANUAL) 1 % (1-7); LYMPH#(MANUAL) 1.19 x10^3/uL (1-3.4); LYMPHS% (MANUAL) 9 % (22-44); METAMYELOCYTES# (MANUAL) 0.53 x10^3/uL (0-0); METAMYELOCYTES% (MANUAL) 4 % (0-1); MONOS#(MANUAL) 0.26 x10^3/uL (0.3-2.7); MONOS% (MANUAL) 2 % (2-9); MYELOCYTES# (MANUAL) 0.26 x10^3/uL (0-0); MYELOCYTES% (MANUAL) 2 % (0-0); SEG#(MANUAL) 10.03 x10^3/uL (1.8-6.8); SEGS% (MANUAL) 76 % (42-75)
[2017-04-15 06:02] LABS: ANISOCYTOSIS 1+; POLYCHROMASIA 1+
[2017-04-15 06:03] LABS: <PLATELET ESTIMATE> INCREASED; <PLT MORPHOLOGY> NORMAL PLT MORPH
[2017-04-15] MEDS: INSULIN LISPRO 100 UNITS/ML, PEN SQ-INSULIN SCH ×3 (07:00→17:08)
[2017-04-15] MEDS: ASCORBIC ACID 500 MG TABLET PO SCH (08:34)
[2017-04-15] MEDS: CARVEDILOL 25 MG TABLET PO SCH (08:34)
[2017-04-15] MEDS: LISINOPRIL 20 MG TABLET PO SCH (08:34)
[2017-04-15] MEDS: OMEGA-3/FISH OIL CAPSULE PO SCH (08:34)
[2017-04-15] MEDS: DOCUSATE 100 MG CAPSULE PO SCH (08:35)
[2017-04-15] MEDS: GABAPENTIN 400 MG CAPSULE PO SCH ×2 (08:35→17:09)
[2017-04-15] MEDS: SODIUM CHLORIDE FLUSH 10ML SYR IVF SCH (08:43)
[2017-04-15] MEDS: LACTATED RINGERS 1,000 ML IV SCH (08:43)
[2017-04-15 08:54] VITALS: BP 129/61
[2017-04-15] MEDS: MORPHINE SULFATE 4 MG/ML, 1ML IVPush PRN (11:30)
[2017-04-15] MEDS ORDERED: ACET325T14 PO (12:58)
[2017-04-15] MEDS ORDERED: MERO1PIG IVPB (12:58)
[2017-04-15] MEDS ORDERED: INSU100I11 SQ-INSULIN (12:58)
[2017-04-15] MEDS ORDERED: INSU100I13 SQ-INSULIN (12:58)
[2017-04-15] MEDS ORDERED: DOCU-131 PO (12:58)
[2017-04-15] MEDS ORDERED: WARF5TAB PO (12:58)
[2017-04-15 15:59] VITALS: BP 132/69
[2017-04-15] MEDS ORDERED: WARFARIN 2.5 MG TABLET PO-COUM ONE (16:58)
[2017-04-15] MEDS ORDERED: WARFARIN 5 MG TABLET PO-COUM ONE (16:58)
[2017-04-15] MEDS ORDERED: WARFARIN 7.5 MG TABLET PO-COUM ONE (18:00)
[2017-04-15] MEDS ORDERED: INSULIN GLARGINE 100 UNITS/ML, PEN SQ-INSULIN SCH (21:00)
== END 2017-04-15 17:59 | DRG 853 ==
LOC: ED 12:12 → EDIP 14:12 → 3NW 14:56
PROVIDERS: ADMIT Hospitalist; ATTEND Hospitalist
PROC: 30233L1 Transfusion of Nonautologous Fresh Plasma into Peripheral Vein, Percutaneous Approach (ICD-10-PCS; 2017-04-06)
PROC: 0KBS0ZZ Excision of Right Lower Leg Muscle, Open Approach (ICD-10-PCS; 2017-04-10)
PROC: 0Y6C0Z3 Detachment at Right Upper Leg, Low, Open Approach (ICD-10-PCS; principal; 2017-04-11 18:30)
DX: A41.9 Sepsis, unspecified organism (principal); E43 Unspecified severe protein-calorie malnutrition; E11.42 Type 2 diabetes mellitus with diabetic polyneuropathy; Z93.0 Tracheostomy status; D68.59 Other primary thrombophilia; E11.622 Type 2 diabetes mellitus with other skin ulcer; D62 Acute posthemorrhagic anemia; I11.9 Hypertensive heart disease without heart failure; M86.161 Other acute osteomyelitis, right tibia and fibula; L03.115 Cellulitis of right lower limb; E87.1 Hypo-osmolality and hyponatremia; L97.309 Non-pressure chronic ulcer of unspecified ankle with unspecified severity; M60.009 Infective myositis, unspecified site; E66.01 Morbid (severe) obesity due to excess calories; S30.1XXA Contusion of abdominal wall, initial encounter; D63.8 Anemia in other chronic diseases classified elsewhere; E11.69 Type 2 diabetes mellitus with other specified complication; E78.5 Hyperlipidemia, unspecified; E11.649 Type 2 diabetes mellitus with hypoglycemia without coma; B96.1 Klebsiella pneumoniae [K. pneumoniae] as the cause of diseases classified elsewhere; X58.XXXA Exposure to other specified factors, initial encounter; I45.10 Unspecified right bundle-branch block; Z79.2 Long term (current) use of antibiotics; Z79.01 Long term (current) use of anticoagulants; Z68.38 Body mass index [BMI] 38.0-38.9, adult; Z79.4 Long term (current) use of insulin; Z79.899 Other long term (current) drug therapy; Z79.84 Long term (current) use of oral hypoglycemic drugs; Z86.718 Personal history of other venous thrombosis and embolism; Z89.612 Acquired absence of left leg above knee; Z86.711 Personal history of pulmonary embolism; Z68.37 Body mass index [BMI] 37.0-37.9, adult; Y93.89 Activity, other specified; Y92.89 Other specified places as the place of occurrence of the external cause; Y99.8 Other external cause status
CPT/HCPCS: 36415; 36430; 74177; 80048; 80053; 81001; 82962; 83036; 83605; 83735; 84100; 85025; 85610; 85651; 85730; 86140; 86850; 86900; 87040; 87070; 87075; 87077; 87186; 87205; 87324; 88307; 88311; 93005; 96361; 96374; 96375; A9585; J0690; J1100; J1170; J1644; J2185; J2405; J2543; J2704; J3010; J3370; Q9967; J0295; J1815; J2370; J7030; J7040; J7120; P9017

== ENCOUNTER 2017-05-14 05:38 | Day surgery (SDC) | payer MEDICARE ==
[~2017-05-14 05:38] MED LIST changes: +AMLO10TA2 PO; +ASCO500T8 PO; +CARV-39 PO; +DOCU-131 PO; +INSU100I11 SQ-INSULIN; +INSU100I13 SQ-INSULIN; +LISI40TA PO; +MERO1PIG IVPB; +METF500T27 PO; +OMEG-157 PO; +POTA99TA8 PO; +WARF-36 PO; +WARF5TAB PO; -WARF5TAB7 PO; +ZINC50TA3 PO
[2017-05-14] MEDS ORDERED: LACTATED RINGERS 1,000 ML IV SCH (06:53)
[2017-05-14 06:54] VITALS: BP 109/70
[2017-05-14] MEDS ORDERED: MIDAZOLAM 1 MG/ML, 2ML ONE (06:54)
[2017-05-14] MEDS ORDERED: FENTANYL PF 100 MCG/2ML ONE (06:54)
[2017-05-14] MEDS ORDERED: PROPOFOL 10 MG/ML, 20ML ONE (06:59)
[2017-05-14] MEDS ORDERED: ONDANSETRON 2MG/ML, 2ML ONE (06:59)
[2017-05-14] MEDS ORDERED: KETOROLAC 30 MG/1 ML ONE (06:59)
[2017-05-14] MEDS ORDERED: CEFAZOLIN 1,000 MG ONE (06:59)
[2017-05-14 07:02] LABS: INTERNATIONAL NORMALIZED RATIO 1.05 (0.93-1.1); PROTHROMBIN TIME 10.9 Seconds (9.6-11.5)
[2017-05-14] MEDS ORDERED: hydrALAzine 20 MG/ML, 1ML IV PRN (07:30)
[2017-05-14] MEDS ORDERED: DIAZEPAM 5 MG/ML, 2ML IVPush PRN (07:30)
[2017-05-14] MEDS ORDERED: LABETALOL 5MG/ML, 20ML IV PRN (07:30)
[2017-05-14] MEDS ORDERED: ACETAMINOPHEN 325 MG TABLET PO PRN (07:30)
[2017-05-14] MEDS ORDERED: OXYcodone 5 MG/5 ML ORAL.SOL UDC PO PRN (07:30)
[2017-05-14] MEDS ORDERED: HYDROcodone/APAP 7.5-325MG/15ML UDC PO PRN (07:30)
[2017-05-14] MEDS ORDERED: MEPERIDINE/PF 25MG/0.5ML IVPush PRN (07:30)
[2017-05-14] MEDS ORDERED: MIDAZOLAM 1 MG/ML, 2ML IV PRN (07:30)
[2017-05-14] MEDS ORDERED: PROMETHAZINE 12.5 MG SUPP PR PRN (07:30)
[2017-05-14] MEDS ORDERED: FENTANYL PF 100 MCG/2ML IV PRN (07:30)
[2017-05-14] MEDS ORDERED: PROMETHAZINE 25 MG/ML, 1ML IV PRN (07:30)
[2017-05-14] MEDS ORDERED: METOPROLOL 1 MG/ML, 5ML IV PRN (07:30)
[2017-05-14] MEDS ORDERED: ONDANSETRON 2MG/ML, 2ML IVPush PRN (07:30)
[2017-05-14] MEDS ORDERED: ALBUTEROL SULFATE 2.5 MG/3 ML NPPB PRN (07:30)
[2017-05-14] MEDS ORDERED: morphine SULFATE 10 MG/ML, 1ML IV PRN (07:30)
[2017-05-14] MEDS ORDERED: EPHEDRINE 50 MG/ML, 1ML IVPush PRN (07:30)
== END 2017-05-14 09:10 ==
LOC: OUT 05:38
PROVIDERS: ATTEND Orthopaedic Surgery
DX: T81.30XA Disruption of wound, unspecified, initial encounter (principal); I10 Essential (primary) hypertension; E11.9 Type 2 diabetes mellitus without complications; Y83.8 Other surgical procedures as the cause of abnormal reaction of the patient, or of later complication, without mention of misadventure at the time of the procedure; Y92.89 Other specified places as the place of occurrence of the external cause
CPT/HCPCS: 13160; 36415; 82962; 85610; 87070; 87075; 87077; 87186; 87205; J0690; J1885; J2250; J2405; J2704; J3010; J7120

== ENCOUNTER 2017-06-16 05:42 | Inpatient (IN) | payer MEDICARE ==
[~2017-06-16] VITALS: Ht 152.4 cm; Wt 142.6 kg
[2017-06-16 06:43] LABS: BASOPHILS # (AUTO) 0.02 x10^3/uL (0-0.1); BASOPHILS % (AUTO) 0 % (0-1); EOSINOPHILS # (AUTO) 0.12 x10^3/uL (0-0.4); EOSINOPHILS % (AUTO) 2 % (1-7); LYMPHOCYTES # (AUTO) 1.11 x10^3/uL (1-3.4); LYMPHOCYTES % (AUTO) 17 % (22-44); MD NO; MEAN CORPUSCULAR HEMOGLOBIN 26.2 pg (27.5-34.5); MEAN CORPUSCULAR HGB CONC 32.6 g/dL (33.2-36.2); MEAN CORPUSCULAR VOLUME 80.5 fL (81-97); MEAN PLATELET VOLUME 8.1 fL (7.4-10.4); MONOCYTES # (AUTO) 0.35 x10^3/uL (0.2-0.8); MONOCYTES % (AUTO) 5 % (2-9); NEUTROPHILS # (AUTO) 4.96 x10^3/uL (1.8-6.8); NEUTROPHILS % (AUTO) 76 % (42-75); PLATELET COUNT 230 x10^3/uL (130-400); RED BLOOD COUNT 3.93 x10^6/uL (4.38-5.82); RED CELL DISTRIBUTION WIDTH 17.7 % (9.4-14.8)
[2017-06-16 06:54] LABS: ANION GAP 7 mmol/L (5-15); CHLORIDE 110 mmol/L (98-107); CREATININE 1.97 mg/dL (0.7-1.3)
[2017-06-16 06:55] LABS: ALANINE AMINOTRANSFERASE 20 U/L (12-78); ALBUMIN 2.5 g/dL (3.4-5.0)
[2017-06-16 06:57] LABS: ALKALINE PHOSPHATASE 50 U/L (45-117); BILIRUBIN,TOTAL 0.2 mg/dL (0.2-1.0); TOTAL PROTEIN 6.4 g/dL (6.4-8.2)
[2017-06-16 06:59] LABS: MICROSCOPIC NOT IND
[2017-06-16 07:02] LABS: CULTURE INDICATED? NO
[2017-06-16] MEDS ORDERED: SODIUM CHLORIDE 0.9% 1,000ML IVBOLUS ONE (07:30)
[2017-06-16] MEDS ORDERED: METF500T27 PO (08:34)
[2017-06-16] MEDS ORDERED: INSU100I13 SQ (08:34)
[2017-06-16] MEDS ORDERED: WARF7.5T46 PO (08:34)
[2017-06-16] MEDS ORDERED: humalog SQ (08:36)
[2017-06-16] MEDS ORDERED: LABETALOL 5MG/ML, 20ML IVPush PRN (09:30)
[2017-06-16] MEDS ORDERED: ACETAMINOPHEN 325 MG TABLET PO PRN (09:30)
[2017-06-16] MEDS ORDERED: hydrALAzine 20 MG/ML, 1ML IVPush PRN (09:30)
[2017-06-16] MEDS: CARVEDILOL 25 MG TABLET PO SCH ×2 (09:30→21:00)
[2017-06-16 09:37] VITALS: BP 117/75
[2017-06-16] MEDS: TAMSULOSIN 0.4 MG CAP.ER.24H PO SCH (09:55)
[2017-06-16] MEDS: GABAPENTIN 400 MG CAPSULE PO SCH ×3 (09:55→21:31)
[2017-06-16] MEDS: LACTATED RINGERS 1,000 ML IV SCH ×2 (09:56→17:49)
[2017-06-16 10:00] LABS: INTERNATIONAL NORMALIZED RATIO 1.88 (0.93-1.1); PROTHROMBIN TIME 19.3 Seconds (9.6-11.5)
[2017-06-16 12:40] VITALS: BP 120/73
[2017-06-16] MEDS: INSULIN LISPRO 100 UNITS/ML, PEN SQ-INSULIN SCH ×2 (16:00→21:00)
[2017-06-16] MEDS ORDERED: WARFARIN 10 MG TABLET PO-COUM ONE (18:00)
[2017-06-16] MEDS ORDERED: WARFARIN 7.5 MG TABLET PO-COUM SCH (18:00)
[2017-06-16 19:54] VITALS: BP 96/60
[2017-06-16] MEDS ORDERED: INSULIN GLARGINE 100 UNITS/ML, PEN SQ-INSULIN SCH (21:00)
[2017-06-16] MEDS ORDERED: AMLODIPINE 5 MG TABLET PO SCH (21:00)
[2017-06-16] MEDS ORDERED: LOVASTATIN 40 MG TABLET PO SCH (21:00)
[2017-06-16 21:35] VITALS: BP 107/65
[2017-06-17] MEDS: LACTATED RINGERS 1,000 ML IV SCH ×2 (01:08→09:30)
[2017-06-17 01:20] VITALS: BP 106/65
[2017-06-17 05:20] LABS: INTERNATIONAL NORMALIZED RATIO 1.85 (0.93-1.1)
[2017-06-17 05:21] LABS: BASOPHILS # (AUTO) 0.02 x10^3/uL (0-0.1); BASOPHILS % (AUTO) 0 % (0-1); EOSINOPHILS # (AUTO) 0.19 x10^3/uL (0-0.4); EOSINOPHILS % (AUTO) 4 % (1-7); LYMPHOCYTES # (AUTO) 0.99 x10^3/uL (1-3.4); LYMPHOCYTES % (AUTO) 20 % (22-44); MD NO; MEAN CORPUSCULAR HEMOGLOBIN 26.4 pg (27.5-34.5); MEAN CORPUSCULAR HGB CONC 32.5 g/dL (33.2-36.2); MEAN CORPUSCULAR VOLUME 81.2 fL (81-97); MEAN PLATELET VOLUME 8.9 fL (7.4-10.4); MONOCYTES # (AUTO) 0.39 x10^3/uL (0.2-0.8); MONOCYTES % (AUTO) 8 % (2-9); NEUTROPHILS # (AUTO) 3.44 x10^3/uL (1.8-6.8); NEUTROPHILS % (AUTO) 68 % (42-75); PLATELET COUNT 232 x10^3/uL (130-400); RED BLOOD COUNT 3.95 x10^6/uL (4.38-5.82); RED CELL DISTRIBUTION WIDTH 17.4 % (9.4-14.8)
[2017-06-17 05:26] LABS: ANION GAP 6 mmol/L (5-15); CALCIUM 8.4 mg/dL (8.5-10.1); CHLORIDE 110 mmol/L (98-107); CREATININE 1.02 mg/dL (0.7-1.3)
[2017-06-17] MEDS: INSULIN LISPRO 100 UNITS/ML, PEN SQ-INSULIN SCH (07:00)
[2017-06-17] MEDS ORDERED: TAMS-11 PO (07:26)
[2017-06-17 08:18] VITALS: BP 117/69
[2017-06-17] MEDS: CARVEDILOL 25 MG TABLET PO SCH (08:27)
[2017-06-17] MEDS: TAMSULOSIN 0.4 MG CAP.ER.24H PO SCH (08:27)
[2017-06-17] MEDS: GABAPENTIN 400 MG CAPSULE PO SCH (08:28)
[2017-06-17 08:50] VITALS: BP 136/74
[2017-06-17] MEDS ORDERED: WARFARIN 10 MG TABLET PO-COUM ONE (18:00)
== END 2017-06-17 11:00 | disposition home or self-care (01) | DRG 682 ==
LOC: ED 07:56 → EDIP 08:00 → 3NE 08:52
PROVIDERS: ADMIT Emergency Medicine; ATTEND Emergency Medicine
DX: N17.0 Acute kidney failure with tubular necrosis (principal); L89.313 Pressure ulcer of right buttock, stage 3; E43 Unspecified severe protein-calorie malnutrition; L89.319 Pressure ulcer of right buttock, unspecified stage; Z89.612 Acquired absence of left leg above knee; E86.0 Dehydration; N13.9 Obstructive and reflux uropathy, unspecified; R33.9 Retention of urine, unspecified; I10 Essential (primary) hypertension; E11.9 Type 2 diabetes mellitus without complications; E78.5 Hyperlipidemia, unspecified; E86.1 Hypovolemia; Z79.01 Long term (current) use of anticoagulants; Z79.4 Long term (current) use of insulin; Z86.718 Personal history of other venous thrombosis and embolism; Z87.891 Personal history of nicotine dependence; Z89.511 Acquired absence of right leg below knee
CPT/HCPCS: 36415; 51702; 76700; 80048; 80053; 81003; 82962; 83735; 85025; 85610; 96360; 99285; J1815; J7030; J7120

== ENCOUNTER → 2017-07-25 | Outpatient (CLI) | payer MEDICARE ==
[~2017-07-25] MED LIST changes: +GADOBUTROL 10 MMOL/10 ML PFS ONE; +INSU100I13 SQ; +TAMS-11 PO; +WARF7.5T46 PO; +humalog SQ
== END | disposition home or self-care (01) ==
LOC: RAD 09:00
PROVIDERS: ATTEND Orthopaedic Surgery
DX: M79.651 Pain in right thigh (principal); Z89.611 Acquired absence of right leg above knee
CPT/HCPCS: 73720; A9585

== ENCOUNTER 2019-07-22 06:17 | Emergency (ER) | payer MEDICARE ==
[~2019-07-22] VITALS: Ht 152.4 cm; Wt 136.0 kg
[~2019-07-22 06:17] MED LIST changes: -AMLO10TA2 PO; +AMLO10TA8 PO; -GADOBUTROL 10 MMOL/10 ML PFS ONE; -IPRA3AMP NEB; +IPRA3AMP30 NEB; -MERO1VIA15 IV; +MERO1VIA24 IV; +METF500T17 PO; -METF500T4 PO; -POTA20LI NG; +POTA20LI2 NG; -QUET25TA PO; +QUET25TA7 PO; +ZINC50TA10 PO; -ZINC50TA3 PO; +[UNRECOGNIZED DRUG - CODE] IV; -[UNRECOGNIZED DRUG - CODE] IV; +[UNRECOGNIZED DRUG - CODE] IVPB; -[UNRECOGNIZED DRUG - CODE] IVPB
[2019-07-22] MEDS ORDERED: METF500T17 PO (06:43)
[2019-07-22] MEDS ORDERED: WARF7.5T46 PO (06:43)
[2019-07-22] MEDS ORDERED: WARF10TA43 PO (06:43)
--- NOTE | 2019-07-22 07:01 | NUR ---
report given to chalino marques
--- NOTE | 2019-07-22 07:08 | NUR ---
REPORT FROM PRE[facility]LO[facility], ASSUME CARE OF PT AT THIS TIME. PT REPORTS NO SX AT THIS TIME. CALL LIGHT WITHIN REACH, FAMILY AT BS.
[2019-07-22 07:16] VITALS: BP 150/75
--- NOTE | 2019-07-22 07:25 | NUR ---
PT TO CT.
[2019-07-22 07:28] LABS: BASOPHILS # (AUTO) 0.06 x10^3/uL (0-0.1); BASOPHILS % (AUTO) 1 % (0-1); EOSINOPHILS # (AUTO) 0.25 x10^3/uL (0-0.4); EOSINOPHILS % (AUTO) 3 % (1-7); LYMPHOCYTES # (AUTO) 1.42 x10^3/uL (1-3.4); LYMPHOCYTES % (AUTO) 18 % (22-44); MD NO; MEAN CORPUSCULAR HEMOGLOBIN 29.1 pg (27.5-34.5); MEAN CORPUSCULAR HGB CONC 33.3 g/dL (33.2-36.2); MEAN CORPUSCULAR VOLUME 87.2 fL (81-97); MEAN PLATELET VOLUME 8.8 fL (7.4-10.4); MONOCYTES # (AUTO) 0.63 x10^3/uL (0.2-0.8); MONOCYTES % (AUTO) 8 % (2-9); NEUTROPHILS # (AUTO) 5.46 x10^3/uL (1.8-6.8); NEUTROPHILS % (AUTO) 70 % (42-75); PLATELET COUNT 209 x10^3/uL (130-400); RED BLOOD COUNT 5.85 x10^6/uL (4.38-5.82); RED CELL DISTRIBUTION WIDTH 14.2 % (9.4-14.8)
[2019-07-22 07:34] LABS: INTERNATIONAL NORMALIZED RATIO 1.85 (0.93-1.1); PROTHROMBIN TIME 19.7 Seconds (9.6-11.5)
[2019-07-22 07:51] LABS: CHLORIDE 108 mmol/L (98-107)
[2019-07-22 07:58] LABS: ANION GAP 9 mmol/L (5-15); CALCIUM 8.7 mg/dL (8.5-10.1)
[2019-07-22 08:03] LABS: CREATININE 0.95 mg/dL (0.7-1.3); TROPONIN I < 0.015 ng/mL (0.000-0.045)
--- NOTE | 2019-07-22 09:58 | NUR ---
ASSUMED CARE FOR DISCHARGE ONLY. ASSISTED UP TO CHAIR X 3 ASSIST. Patient/Caregiver given discharge instructions and they have confirmed that they understand the instructions. Patient ambulatory with steady gait.
== END 2019-07-22 10:00 | disposition home or self-care (01) ==
LOC: ED 09:30
DX: R41.82 Altered mental status, unspecified (principal); R00.0 Tachycardia, unspecified; I10 Essential (primary) hypertension; E78.5 Hyperlipidemia, unspecified; E11.9 Type 2 diabetes mellitus without complications; Z86.718 Personal history of other venous thrombosis and embolism; Z87.891 Personal history of nicotine dependence
CPT/HCPCS: 36415; 70450; 71045; 80048; 82040; 84484; 85025; 85610; 93005; 99285